=== PATIENT | male | born 1995 | race Caucasian/White ===

== ENCOUNTER 2017-05-16 06:44 | Emergency (ER) | payer MEDICAID ==
[~2017-05-16] VITALS: Ht 165.1 cm; Wt 54.0 kg
[~2017-05-16 06:44] MED LIST: celexa
[2017-05-16] MEDS ORDERED: ONDANSETRON HCL 4MG/2ML VIAL IV STA (08:58)
[2017-05-16] MEDS ORDERED: SODIUM CHLORIDE 0.9% 1,000 ML IV ONE (08:58)
[2017-05-16] MEDS ORDERED: KETOROLAC 30MG/ML VIAL IV STA (08:58)
[2017-05-16] MEDS ORDERED: FAMOTIDINE 20MG/2ML VIAL IV STA (08:58)
[2017-05-16 09:12] LABS: HEMATOCRIT. 44.7 % (42.0-52.0); HEMOGLOBIN. 15.2 g/dL (14.0-18.0); MEAN CORPUSCULAR VOLUME 85.4 fL (80.0-94.0); MEAN PLATELET VOLUME 9.9 fl (7.4-10.4); PLATELET 165 x1000/uL (130-400); RED BLOOD CELL COUNT 5.23 mill/uL (4.7-6.1); RED CELL DISTRIBUTION WIDTH 13.1 % (11.6-14.6)
[2017-05-16 09:19] LABS: INR 1.1; PROTHROMBIN TIME 11.3 sec (9.4-11.6)
[2017-05-16 09:25] LABS: CARBON DIOXIDE 25 mEq/L (21-32); CHLORIDE 102 mEq/L (98-107)
[2017-05-16 09:35] LABS: PLATELET ESTIMATE NORMAL
[2017-05-16 09:47] LABS: CLARITY URINE CLEAR (CLEAR); COLOR URINE YELLOW (YELLOW); KETONES URINE 3+ (NEGATIVE); LEUKOCYTE ESTERASE URINE NEGATIVE (NEGATIVE); NITRITE URINE NEGATIVE (NEGATIVE); OCCULT BLOOD URINE NEGATIVE (NEGATIVE); PH URINE 5.5 (4.5-8.0); PROTEIN URINE NEGATIVE (NEGATIVE); SPECIFIC GRAVITY URINE 1.036 (1.005-1.030)
[2017-05-16 11:03] VITALS: BP 111/53
== END 2017-05-16 11:05 | disposition home or self-care (01) ==
LOC: ER 06:44
DX: R10.11 Right upper quadrant pain (principal); R11.2 Nausea with vomiting, unspecified; R19.7 Diarrhea, unspecified; F32.9 Major depressive disorder, single episode, unspecified; F12.10 Cannabis abuse, uncomplicated
CPT/HCPCS: 36415; 71010; 76700; 80053; 81003; 83690; 85025; 85610; 96361; 96374; 96375; 99285; J1885; J2405; J3490; J7030; Z7610

== ENCOUNTER 2020-03-08 23:14 | Emergency (ER) | payer MEDICAID ==
[~2020-03-08] VITALS: Ht 170.2 cm; Wt 51.0 kg
[2020-03-08 23:25] VITALS: BP 118/68
== END 2020-03-09 | disposition left against medical advice (07) ==
LOC: ER 23:14
DX: R41.82 Altered mental status, unspecified (principal); R45.851 Suicidal ideations; I49.9 Cardiac arrhythmia, unspecified; Z98.890 Other specified postprocedural states
CPT/HCPCS: 80053; 80307; 80320; 80329; 93005; 99283; G0480